=== PATIENT | male | born 2000 | race Caucasian/White ===

== ENCOUNTER 2018-03-26 17:29 | Emergency (ER) | payer BC ==
[~2018-03-26] VITALS: Ht 167.6 cm; Wt 63.3 kg
[2018-03-26 17:37] VITALS: TEMP 36.8; Ht 167.6 cm; Wt 63.3 kg
[2018-03-26] MEDS ORDERED: SODIUM CHLORIDE 0.9% 1000ML 1,000 ML IV STA (17:48)
[2018-03-26] MEDS ORDERED: KETOROLAC TROMETHAMINE 30 MG/ML VIAL IV STA (17:48)
[2018-03-26 18:16] LABS: BASO % 1.3 %; BASO ABS # 0.09 K/uL (0-0.2); EOS % 2.7 %; EOS ABS # 0.18 K/uL (0-0.5); HEMATOCRIT 43.8 % (42-52); HEMOGLOBIN 14.7 g/dL (14.0-18.0); IG# 0.01 K/uL (0.00-0.02); LYMPH % 42.7 %; MEAN CORPUSCULAR HEMOGLOBIN 29.5 pg (25-34); MEAN CORPUSCULAR HGB CONC 33.6 g/dl (32-36); MEAN PLATELET VOLUME 10.1 fL (7.4-10.4); MONO % 11.2 %; MONO ABS # 0.76 K/uL (0.11-0.59); NEUT ABS # 2.85 K/uL (1.4-6.5); PLATELET COUNT 225 K/uL (130-400); RED CELL DISTRIBUTION WIDTH CV 13.5 % (11.5-14.5); RED CELL DISTRIBUTION WIDTH SD 43.9 fL (36.4-46.3); WHITE BLOOD COUNT 6.79 K/uL (4.8-10.8)
[2018-03-26 18:37] LABS: BLOOD UREA NITROGEN 13 mg/dl (7-18); CALCIUM 8.3 mg/dl (8.5-10.1); CARBON DIOXIDE 29 mmol/L (21-32); CREATININE 1.07 mg/dl (0.60-1.40); GLUCOSE 92 mg/dl (70-99); SODIUM 141 mmol/L (136-145)
--- NOTE | 2018-03-26 18:44 | DIAGNOSTIC IMAGING REPORT ---
SINGLE VIEW CHEST CLINICAL HISTORY: Atypical chest pain. FINDINGS: An AP, portable, upright chest radiograph is obtained. No prior studies are available for comparison at the time of dictation. The cardiomediastinal silhouette is unremarkable. The lungs and pleural spaces are clear. No pneumothorax is seen. The bony thorax is grossly intact. IMPRESSION: No active disease in the chest. Electronically signed by: Lan Sousa M.D. 03/26/2018 6:42 PM Dictated Date/Time: 03/26/2018 6:42 PM
[2018-03-26 18:59] VITALS: BP 117/64; PULSE 52; O2SAT 98
--- NOTE | 2018-03-26 23:48 | EMERGENCY ROOM VISIT NOTE ---
History Report prepared by Josephibthaddeus: Topher Lawson Under the Supervision of: Dr. Mane Andujar D.O. First contact with patient: 17:40 Chief Complaint: CHEST PAIN Stated Complaint: CHEST PAIN History of Present Illness The patient is a 17 year old male who presents to the Emergency Room after referral from [facility] with complaints of pain in the left epigastric region that began 24 hours prior to arrival. The patient was seen at [facility] prior to this visit and was referred to the ED for a pneumonia rule-out. He states that his pain is currently worsened with deep inspiration, as well as twisting/ turning/bending. The pain started when he was studying, and sitting at rest. He rates the pain as a 5/10 currently, but notes the severity waxes and wanes. He does note a persistent cough for the past several weeks. The cough has started to produce a yellow mucous acutely. He denies any headache, change in vision, fevers, chest pain, shortness of breath, nausea, vomiting, diarrhea, pain with urination, and melena. Onset: 24 hours ago Position: chest (left) Symptom Intensity: 5/10 currently Timing: waxes/wanes Modifying Factors (Worsening): breathing (deep inhalation), other (twisting/ turning/bending) Associated Symptoms: No fevers, No chest pain, No SOB Review of Systems See HPI for pertinent positives & negatives. A total of 10 systems reviewed and were otherwise negative. Past Medical & Surgical No pertinent histories. Family History NO family histories noted. Social History Smoking Status: Current Some Day Smoker Marital Status: single Housing Status: lives with roommate Occupation Status: student Current/Historical Medications No Active Prescriptions or Reported Meds Allergies Coded Allergies: POLLEN (Verified Allergy, Intermediate, ITCHY, WATERY EYES, SNEEZING, CONGESTION, 03/26/18) Physical Exam Vital Signs Date Time Temp Pulse Resp B/P (MAP) Pulse Ox O2 Delivery O2 Flow Rate FiO2 03/26/18 18:59 52 20 117/64 98 03/26/18 18:37 52 117/64 98 Room Air 03/26/18 18:02 Room Air 03/26/18 17:37 36.8 87 20 126/69 99 Room Air Physical Exam GENERAL: Sitting up in bed, alert, well appearing, well nourished, no distress, non-toxic EYE EXAM: normal conjunctiva. OROPHARYNX: no exudate, no erythema, lips, buccal mucosa, and tongue normal and mucous membranes are moist NECK: supple, no nuchal rigidity, no adenopathy, non-tender LUNGS: Clear to auscultation. Normal chest wall mechanics HEART: no murmurs, S1 normal and S2 normal ABDOMEN: abdomen soft, non-tender, normo-active bowel sounds, no masses, no rebound or guarding. BACK: Back is symmetrical on inspection and there is no deformity, no midline tenderness, no CVA tenderness. SKIN: no rashes and no bruising UPPER EXTREMITIES: upper extremities are grossly normal. Radial pulses are equal bilaterally. LOWER EXTREMITIES: No pitting edema. Calves are equal bilaterally. NEURO EXAM: Normal sensorium, cranial nerves II-XII grossly intact, normal speech, no gross weakness of arms, no gross weakness of legs. Medical Decision & Procedures ER Provider Diagnostic Interpretation: Radiology results as stated below per my review and the radiologist's interpretation: SINGLE VIEW CHEST CLINICAL HISTORY: Atypical chest pain. FINDINGS: An AP, portable, upright chest radiograph is obtained. No prior studies are available for comparison at the time of dictation. The cardiomediastinal silhouette is unremarkable. The lungs and pleural spaces are clear. No pneumothorax is seen. The bony thorax is grossly intact. IMPRESSION: No active disease in the chest. Electronically signed by: Lan Sousa M.D. 03/26/2018 6:42 PM Dictated Date/Time: 03/26/2018 6:42 PM Laboratory Results 03/26/18 18:00 Red Blood Count 4.98, Mean Corpuscular Volume 88.0, Mean Corpuscular Hemoglobin 29.5, Mean Corpuscular Hemoglobin Concent 33.6, Mean Platelet Volume 10.1, Neutrophils (%) (Auto) 42.0, Lymphocytes (%) (Auto) 42.7, Monocytes (%) (Auto) 11.2, Eosinophils (%) (Auto) 2.7, Basophils (%) (Auto) 1.3, Neutrophils # (Auto ) 2.85, Lymphocytes # (Auto) 2.90, Monocytes # (Auto) 0.76, Eosinophils # (Auto ) 0.18, Basophils # (Auto) 0.09 03/26/18 18:00 Test 03/26/18 18:00 White Blood Count 6.79 K/uL (4.8-10.8) Red Blood Count 4.98 M/uL (4.7-6.1) Hemoglobin 14.7 g/dL (14.0-18.0) Hematocrit 43.8 % (42-52) Mean Corpuscular Volume 88.0 fL (80-100) Mean Corpuscular Hemoglobin 29.5 pg (25-34) Mean Corpuscular Hemoglobin Concent 33.6 g/dl (32-36) Platelet Count 225 K/uL (130-400) Mean Platelet Volume 10.1 fL (7.4-10.4) Neutrophils (%) (Auto) 42.0 % Lymphocytes (%) (Auto) 42.7 % Monocytes (%) (Auto) 11.2 % Eosinophils (%) (Auto) 2.7 % Basophils (%) (Auto) 1.3 % Neutrophils # (Auto) 2.85 K/uL (1.4-6.5) Lymphocytes # (Auto) 2.90 K/uL (1.2-3.4) Monocytes # (Auto) 0.76 K/uL (0.11-0.59) Eosinophils # (Auto) 0.18 K/uL (0-0.5) Basophils # (Auto) 0.09 K/uL (0-0.2) RDW Standard Deviation 43.9 fL (36.4-46.3) RDW Coefficient of Variation 13.5 % (11.5-14.5) Immature Granulocyte % (Auto) 0.1 % Immature Granulocyte # (Auto) 0.01 K/uL (0.00-0.02) D-Dimer < 190 ug/L FEU (0-500) Anion Gap 5.0 mmol/L (3-11) Est Creatinine Clear Calc Drug Dose 99.4 ml/min Estimated GFR () 116.0 Estimated GFR (Non- 100.1 BUN/Creatinine Ratio 12.5 (10-20) Calcium Level 8.3 mg/dl (8.5-10.1) Troponin I < 0.015 ng/ml (0-0.045) Laboratory results per my review. Medications Administered Medications (Trade) Dose Ordered Sig/Coy Route Start Time Stop Time Status Last Admin Dose Admin Ketorolac Tromethamine (Toradol Inj) 30 mg NOW STAT IV 03/26/18 17:48 03/26/18 17:49 DC 03/26/18 18:01 30 MG Sodium Chloride 1,000 ml @ 999 mls/hr Q1H1M STAT IV 03/26/18 17:48 03/26/18 18:48 DC 03/26/18 18:01 999 MLS/HR ECG Per My Interpretation Indication: chest pain Rate (beats per minute): 56 Rhythm: sinus bradycardia Findings: other (Normal axis, J-point elevation diffusely. ) ED Course ED COURSE: Vital signs were reviewed and showed normal vitals. The patients medical record was reviewed The above diagnostic studies were performed and reviewed. ED treatments and interventions as stated above. 174: The patient was evaluated in room C7. A complete history and physical examination was performed. 174: Ordered Sodium Chloride 1000 mL @ 999 mL/hr IV, Toradol 30 mg IV. 185: Upon reevaluation, the patient is resting comfortably.I discussed my findings with the patient and he understands and agrees with the treatment plan. Based on the patients age, coexisting illnesses, exam and lab findings the decision to treat as an outpatient was made. The patient remained stable while under my care. The patient appeared well at the time of discharge. Medical Decision Differential diagnoses includes but is not limited to acute coronary syndrome, myocardial infarction, pericarditis, pulmonary embolus, aortic dissection, pneumonia, pneumothorax, musculoskeletal, shingles, esophageal. Patient is a 88-year-old male who is referred in by [employer] [facility] for left-sided chest pain. This is worse with twisting turning bending and palpation. He does admit to a productive cough for the past 3 days. EKG was obtained and showed early re-pole. CBC along with BMP troponin and d-dimer were negative. Patient was given Toradol and had near complete resolution of his chest pain. Do believe the URI is likely viral. Patient was updated in regards to his findings he was discharged follow-up with PCP as an outpatient. Vitals were stable. Otherwise well-appearing. Discussed with Pt concerning signs and symptoms to watch out for. Pt was instructed to follow up with their PCP and discussed with the patient their option to return to the ED at anytime for persistent or worsening symptoms. The appropriate anticipatory guidance and out- patient management, including indications for return to the emergency department , were explained at length to the patient and understood. Impression Primary Impression: Musculoskeletal chest pain Additional Impression: URI, acute Scribe Attestation The scribe's documentation has been prepared under my direction and personally reviewed by me in its entirety. I confirm that the note above accurately reflects all work, treatment, procedures, and medical decision making performed by me. Departure Information Dispostion Home / Self-Care Prescriptions No Active Prescriptions or Reported Meds Referrals No Doctor, Assigned (PCP) Forms HOME CARE DOCUMENTATION FORM, IMPORTANT VISIT INFORMATION Patient Instructions My [facility] Additional Instructions Please follow up with your primary care doctor or if you are a student, [facility] with in the next 24 hours. Any worsening of your symptoms, please return to the ED immediately. This includes any fevers greater than 100.4, worsening pain, chest pain, shortness breath, persistent nausea, vomiting, unable to eat or drink, or any other concerning signs or symptoms from your standpoint. Please take Tylenol or Motrin as needed for pain. Problem Qualifiers
== END 2018-03-26 18:59 | disposition home or self-care (01) ==
LOC: C.EDB 17:31 → C.EDC 18:59
DX: R07.89 Other chest pain (principal); J06.9 Acute upper respiratory infection, unspecified; Z72.0 Tobacco use; Z91.048 Other nonmedicinal substance allergy status